=== PATIENT | male | born 1985 | race Two or more races ===

== ENCOUNTER 2019-05-11 11:38 | Emergency (ER) | payer MEDICAID ==
[~2019-05-11] VITALS: Ht 185.4 cm; Wt 86.6 kg
[2019-05-11 12:51] LABS: BASOPHILS # (AUTO) 0.1 /CMM (0.0-0.2); BASOPHILS % (AUTO) 0.6 % (0.0-2.0); EOSINOPHILS % (AUTO) 2.7 % (0.0-6.0); HEMATOCRIT 49 % (39-51); HEMOGLOBIN 16.1 g/dL (13.5-17.5); LYMPHOCYTES # (AUTO) 2.4 /CMM (0.8-4.8); LYMPHOCYTES % (AUTO) 23.9 % (20.0-44.0); MEAN CORPUSCULAR HGB CONC 33 g/dl (31.0-36.0); MEAN CORPUSCULAR VOLUME 85 fL (80-96); MONOCYTES # (AUTO) 0.7 /CMM (0.1-1.30); NEUTROPHILS # (AUTO) 6.6 /CMM (1.8-8.9); NEUTROPHILS % (AUTO) 65.8 % (43.0-81.0); PLATELET COUNT (AUTO) 299 /CMM (150-450); RED BLOOD CELL COUNT(AUTO) 5.76 MIL/uL (4.5-6.0); WHITE BLOOD COUNT (AUTO) 10.1 K/uL (4.3-11.0)
[2019-05-11 12:58] LABS: CREATININE 0.9 mg/dL (0.6-1.3); POTASSIUM 3.9 mmol/L (3.5-5.1)
[2019-05-11] MEDS ORDERED: LIDOCAINE 5% (PATCH) 1 EA PATCH TP SCH (13:00)
[2019-05-11] MEDS ORDERED: IV NS 0.9% 1,000 ML BAG IV ONE (13:00)
[2019-05-11] MEDS ORDERED: IBUPROFEN 600 MG TABLET PO ONE (13:00)
[2019-05-11 13:01] LABS: APPEARANCE,URINE Clear (CLEAR); BILIRUBIN,URINE SMALL (NEGATIVE); BLOOD, URINE Negative Ery/uL (NEGATIVE); COLOR,URINE Yellow (YELLOW); KETONES,URINE Trace (NEGATIVE); LEUKOCYTE ESTERASE ,URINE Negative (NEGATIVE); NITRITE, URINE Negative (NEGATIVE); PROTEIN,URINE 100 mg/dl (NEGATIVE); UGLUCOSE Negative (NEGATIVE)
[2019-05-11 13:03] LABS: BACTERIA,URINE Rare /HPF (None Seen); RBC,URINE 0-2 /HPF (0-2); SQUAMOUS EPITHELIAL CELL,UR Rare /HPF (None Seen); WBC,URINE 0-2 /HPF (0-3)
[2019-05-11 13:04] LABS: ALBUMIN 3.9 g/dL (3.4-5.0); BILIRUBIN,DIRECT 0.1 mg/dL (0.0-0.2); BILIRUBIN,TOTAL 0.5 mg/dL (0.2-1.0); TOTAL PROTEIN, SERUM 7.8 g/dL (6.4-8.2)
[2019-05-11] MEDS ORDERED: IOHEXOL-300 100 ML VIAL IV ONE (13:25)
[2019-05-11] MEDS ORDERED: IV NS 0.9% 250 ML IV ONE (13:26)
--- NOTE | 2019-05-11 14:26 | NUR ---
PT AAOX4. AMBULATORY. PT C/O RT GROIN & NOT TAKING BP MED X 2 MONTHS. PLACED ON MONITOR AND PULSE OX.
--- NOTE | 2019-05-11 15:08 | NUR ---
Patient discharged to home in stable condition. Written and verbal after care instructions given. Patient verbalizes understanding of instruction. IV removed. Catheter intact and site benign. Pressure and 4x4 applied to site. No bleeding noted. PT ambulatory with a steady gait.
[2019-05-11 15:12] VITALS: BP 132/86
== END 2019-05-11 15:13 | disposition home or self-care (01) ==
LOC: ER 11:42
DX: R10.31 Right lower quadrant pain (principal); I10 Essential (primary) hypertension; W11.XXXA Fall on and from ladder, initial encounter; Y93.89 Activity, other specified; Y92.89 Other specified places as the place of occurrence of the external cause; Y99.8 Other external cause status
CPT/HCPCS: 36415; 74177; 80048; 80076; 81001; 85025; 87491; 87591; 99284; J7030; J7050; Q9967; 81000-TC

== ENCOUNTER 2019-06-07 18:47 | Emergency (ER) | payer MEDICAID ==
[~2019-06-07] VITALS: Ht 185.4 cm; Wt 86.2 kg
[2019-06-07 19:16] VITALS: BP 129/85
[2019-06-07] MEDS ORDERED: IBUPROFEN 600 MG TABLET PO ONE (20:43)
[2019-06-07] MEDS: IBUPROFEN 600 MG TABLET PO ONE (20:44)
--- NOTE | 2019-06-07 20:45 | NUR ---
Patient discharged to home in stable condition. Written and verbal after care instructions given. Patient verbalizes understanding of instruction. Pt ambulatory with a steady gait. Pt signed homeles waiver.
== END 2019-06-07 20:48 | disposition home or self-care (01) ==
LOC: ER 18:49
DX: S63.591A Other specified sprain of right wrist, initial encounter (principal); I10 Essential (primary) hypertension; W19.XXXA Unspecified fall, initial encounter; Y93.89 Activity, other specified; Y92.89 Other specified places as the place of occurrence of the external cause; Y99.8 Other external cause status
CPT/HCPCS: 73110